=== PATIENT | male | born 1955 | race Caucasian/White ===

== ENCOUNTER 2019-08-23 10:17 | Emergency (ER) | payer MEDICARE, OTHER ==
[2019-08-23 10:49] LABS: Bilirubin Large (Negative); Blood, Urine Large (Negative); Clarity Turbid (Clear); Leukocyte Large (Negative); Nitrite Positive (Negative); Protein, Urine (Dipstick) > or equal to 300 mg/dL (Neg-Trace)
[2019-08-23 10:57] LABS: Glucose, Urine (Dipstick) Unable to Interpret mg/dL (Negative)
[2019-08-23 11:00] LABS: RBC/HPF Greater than 50 HPF (0-3); Squamous Epithelial 0-3 HPF (0-3); WBC/HPF 21-50 HPF (0-3)
[2019-08-23 11:01] LABS: Bacteria/HPF 2+ HPF (None Seen)
[2019-08-23] MEDS ORDERED: Cephalexin 250 MG CAP ONE (11:16)
== END 2019-08-23 11:20 | disposition home or self-care (01) ==
LOC: BURERS 10:17
DX: N39.0 Urinary tract infection, site not specified (principal); E78.5 Hyperlipidemia, unspecified
CPT/HCPCS: 81003; 81015; 99283